=== PATIENT | male | born 1960 | race Caucasian/White ===

== ENCOUNTER 2017-02-12 06:04 | Emergency (ER) | payer SELFPAY ==
[~2017-02-12] VITALS: Ht 177.8 cm; Wt 73.0 kg
[~2017-02-12 06:04] MED LIST: 1-ME1LIQ PO; EPIP0.3I IM; NICO14DI TD; PANT20 PO; PRED10 PO
[2017-02-12 06:07] VITALS: BP 175/120; PULSE 118; RESP 16; TEMP 98.8; O2SAT 97
[2017-02-12] MEDS ORDERED: AMLO10TA2 PO (06:11)
--- NOTE | 2017-02-12 06:41 | PD ---
HPI Chief Complaint: Alcohol/Drug Intoxication Time Seen by Provider: 06:39 Travel History International Travel<30 days: No Contact w/Intl Traveler<30days: No Traveled to known affect area: No History of Present Illness HPI 56-year-old male arrives requesting a call detox. It has been 5-6 drinks daily. He last drank yesterday. He has been drinking for about 10 years or so. He was unaware that we do not have a detox program here but is agreeable with the plan to go to [facility]. He has no thought of hurting himself or others. He denies drug abuse. He lives with his and his private house. PFSH Past Medical History Asthma: No Blood Disorders: No Anxiety: No Depression: Yes Heart Rhythm Problems: No Cancer: No Cardiovascular Problems: No High Cholesterol: No Chemotherapy: No Chest Pain: No Congestive Heart Failure: No COPD: No Diabetes: No Patient Takes Glucophage: No Diminished Hearing: No Endocrine: No Hypertension: Yes Immune Disorder: No Musculoskeletal: No Neurologic: No Psychiatric: No Reproductive: No Respiratory: No Immunizations Current: Yes Pancreatitis: Yes Radiation Therapy: No Sleep Apnea: No Thyroid Disease: No Tetanus Vaccination: < 5 Years Influenza Vaccination: Yes Past Surgical History Abdominal Surgery: Yes (hernia repair) Tonsillectomy: Yes Other Surgery: Yes (hernia repair) Social History Alcohol Use: Yes (6 PACK BEER/DAY) Tobacco Use: Yes (1 PPD) Substance Use: No Allergies-Medications (Allergen,Severity, Reaction): Coded Allergies: Iodine (Verified Allergy, Severe, SWELLING, 02/12/17) Lisinopril (Verified Allergy, Severe, 02/12/17) Severe angioedema. Reported Meds & Prescriptions Reported Meds & Active Scripts Active Valium (Diazepam) 10 Mg Tab 10 Mg PO BID PRN Reported Amlodipine (Amlodipine Besylate) 10 Mg Tab 10 Mg PO DAILY Review of Systems Except as stated in HPI: all other systems reviewed are Neg Physical Exam Narrative GENERAL: 56-year-old male pleasant well-nourished well-developed SKIN: Focused skin assessment warm/dry. HEAD: Atraumatic. Normocephalic. EYES: Pupils equal and round. No scleral icterus. No injection or drainage. ENT: No nasal bleeding or discharge. Mucous membranes pink and moist. NECK: Trachea midline. No JVD. CARDIOVASCULAR: Regular rate and rhythm. No murmur appreciated. RESPIRATORY: No accessory muscle use. Clear to auscultation. Breath sounds equal bilaterally. GASTROINTESTINAL: Abdomen soft, non-tender, nondistended. Hepatic and splenic margins not palpable. MUSCULOSKELETAL: No obvious deformities. No clubbing. No cyanosis. No edema. NEUROLOGICAL: Awake and alert. No obvious cranial nerve deficits. Motor grossly within normal limits. Normal speech. PSYCHIATRIC: Appropriate mood and affect; insight and judgment normal. Data Data Last Documented VS Vital Signs Date Time Temp Pulse Resp B/P Pulse Ox O2 Delivery O2 Flow Rate FiO2 02/12/17 06:07 98.8 118 16 175/120 97 Room Air Time of my assessment: 6:30 AM pulse about 90-100 Orders Lorazepam (Ativan) (02/12/17 06:45) [facility] Medical Decision Making Medical Screen Exam Complete: Yes Emergency Medical Condition: Yes Differential Diagnosis Alcoholism, alcohol withdrawal, tremor Narrative Course Patient arrives and requests admission for alcohol detox. After long discussion he decided to go home for an approach to alcohol detox. He was with his and is quite motivated to quit. He drinks about 5 drinks a day and has been doing so for about 15 years. Time of my evaluation which was about 6: 30 AM his pulse was 100. A very fine tremor was noted about the hands however I could see no indication for admission for alcohol withdrawal syndrome. Diagnosis Primary Impression: Alcoholism Referrals: [facility] Additional Instructions: Please do not drink alcohol if you take Valium. Med/Other Pt SpecificInfo: No Change to Meds Scripts Diazepam (Valium)10 Mg Tab10 Mg PO BID PRN (WITHDRAWAL) #20 TAB Ref 0 Prov:Zohaib Weston MD 02/12/17 Disposition: 01 DISCHARGE HOME Condition: Stable Zohaib Weston MD Feb 12, 2017 06:41
[2017-02-12] MEDS ORDERED: LORazepam 1 MG TAB PO ONE (06:45)
[2017-02-12] MEDS ORDERED: DIAZ10 PO (07:00)
== END 2017-02-12 07:08 | disposition home or self-care (01) ==
LOC: NEPE 06:04
DX: F10.20 Alcohol dependence, uncomplicated (principal); I10 Essential (primary) hypertension; F17.210 Nicotine dependence, cigarettes, uncomplicated
CPT/HCPCS: 99283

== ENCOUNTER 2017-06-08 10:16 | Emergency (ER) | payer SELFPAY ==
[~2017-06-08] VITALS: Ht 175.3 cm; Wt 72.0 kg
[~2017-06-08 10:16] MED LIST changes: -1-ME1LIQ PO; +AMLO10TA2 PO; +DIAZ10 PO; -EPIP0.3I IM; -NICO14DI TD; -PANT20 PO; -PRED10 PO
[2017-06-08 10:19] VITALS: BP 138/99; PULSE 128; RESP 16; TEMP 99.5; O2SAT 98
--- NOTE | 2017-06-08 11:36 | PD ---
HPI Chief Complaint: Skin Problem Time Seen by Provider: 11:28 Travel History International Travel<30 days: No Contact w/Intl Traveler<30days: No Traveled to known affect area: No History of Present Illness HPI 56-year-old male with a month 1 month history of possible scabies. 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 He used half of a tube of his 's permethrin cream without relief. States that this started on his legs that has moved into his groin and upper extremities. States that this is intensely pruritic and has been sleeping in different beds and his because of the symptoms. Denies fever, chills, chest pain, numbness, tingling. Denies sexual contact with her or anyone else. Denies penile discharge or urinary complaints. PFSH Past Medical History Asthma: No Blood Disorders: No Anxiety: No Depression: Yes Heart Rhythm Problems: No Cancer: No Cardiovascular Problems: No High Cholesterol: No Chemotherapy: No Chest Pain: No Congestive Heart Failure: No COPD: No Diabetes: No Diminished Hearing: No Endocrine: No Gastrointestinal Disorders: No Hypertension: Yes Immune Disorder: No Implanted Vascular Access Dvce: No Musculoskeletal: No Neurologic: No Psychiatric: No Reproductive: No Respiratory: No Immunizations Current: Yes Pancreatitis: Yes Radiation Therapy: No Sleep Apnea: No Thyroid Disease: No Past Surgical History Abdominal Surgery: Yes (hernia repair) Tonsillectomy: Yes Other Surgery: Yes (hernia repair) Social History Alcohol Use: Yes (6 PACK BEER/DAY) Tobacco Use: Yes (1 PPD) Substance Use: No Allergies-Medications (Allergen,Severity, Reaction): Coded Allergies: iodine (Unverified Allergy, Severe, SWELLING, 06/08/17) lisinopril (Unverified Allergy, Severe, 06/08/17) Severe angioedema. potassium iodide (Unverified Allergy, Severe, SWELLING, 06/08/17) povidone-iodine (Unverified Allergy, Severe, SWELLING, 06/08/17) sodium iodide (Unverified Allergy, Severe, SWELLING, 06/08/17) sodium iodide (Unverified Allergy, Severe, SWELLING, 06/08/17) Reported Meds & Prescriptions Reported Meds & Active Scripts Active Permethrin Topical 5% (Permethrin) 5% Cream 1 Applic TOPICAL ONCE Apply head to toe. Leave on overnight for 10-12 hours. Repeat in 5 days. Valium (Diazepam) 10 Mg Tab 10 Mg PO BID PRN Reported Amlodipine (Amlodipine Besylate) 10 Mg Tab 10 Mg PO DAILY Review of Systems Except as stated in HPI: all other systems reviewed are Neg Physical Exam Narrative GENERAL: WD, WN in no apparent distress. SKIN: Focused skin assessment warm/dry. Papules without fluid scattered, occasional in clusters on upper legs.scattered upper extremities without evidence of excoriations. No erythema, lymphangiopathic spread. 1 area of left 4th interdigital space with burrowing HEAD: Atraumatic. Normocephalic. EYES: Pupils equal and round. No scleral icterus. No injection or drainage. ENT: No nasal bleeding or discharge. Mucous membranes pink and moist. NECK: Trachea midline. No JVD. No meningismus GASTROINTESTINAL: Abdomen soft, non-tender, nondistended. Hepatic and splenic margins not palpable. MUSCULOSKELETAL: No obvious deformities. No clubbing. No cyanosis. No edema. NEUROLOGICAL: Awake and alert. No obvious cranial nerve deficits. Motor grossly within normal limits. Normal speech. PSYCHIATRIC: Appropriate mood and affect; insight and judgment normal. Data Data Last Documented VS Vital Signs Date Time Temp Pulse Resp B/P (MAP) Pulse Ox O2 Delivery O2 Flow Rate FiO2 06/08/17 11:55 06/08/17 10:19 99.5 128 16 98 Orders Orders Ed Discharge Order (06/08/17 11:37) [facility] Medical Decision Making Medical Screen Exam Complete: Yes Emergency Medical Condition: Yes Differential Diagnosis Scabies versus contact dermatitis versus allergic dermatitis Narrative Course 56-year-old male with a month 1 month history of possible scabies. 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 He used half of a tube of his 's permethrin cream without relief. States that this started on his legs that has moved into his groin and upper extremities. States that this is intensely pruritic and has been sleeping in different beds and his because of the symptoms. Denies fever, chills, chest pain, numbness, tingling. Denies sexual contact with her or anyone else. Denies penile discharge or urinary complaints. Vital Signs stable. Physical Exam consistent with scabies without evidence of cellulitis, impetigo, or other skin infections. Pt to use permethrin cream as directed. Consider follow up with dermatology. Pt to return for worsening symptoms. Diagnosis Primary Impression: Scabies Referrals: [facility] Additional Instructions: Take medication as prescribed If her symptoms persist or worsen return to the emergency department Wash clothing bedding and furniture thoroughly with bleach hot water. Avoid contact with others until completely cleared. Scripts Permethrin Topical 5% (Permethrin Topical 5%) 5% Cream 1 APPLIC TOPICAL ONCE for Scabies, #1 TUBE 0 Refills Apply head to toe. Leave on overnight for 10-12 hours. Repeat in 5 days. Prov: Jose Fontana MD 06/08/17 Disposition: 01 DISCHARGE HOME Condition: Stable Karina Davalos Jun 08, 2017 11:36
[2017-06-08] MEDS ORDERED: PERM5CRE TOPICAL (11:37)
== END 2017-06-08 11:58 | disposition home or self-care (01) ==
LOC: NEPK 10:16
DX: B86 Scabies (principal); I10 Essential (primary) hypertension; F32.9 Major depressive disorder, single episode, unspecified
CPT/HCPCS: 99283

== ENCOUNTER 2017-07-09 07:52 | Emergency (ER) | payer SELFPAY ==
[~2017-07-09 07:52] MED LIST changes: +PERM5CRE TOPICAL
[2017-07-09 07:53] VITALS: BP 156/103; PULSE 115; RESP 18; TEMP 98.3; O2SAT 99
[2017-07-09] MEDS ORDERED: SODIUM CHLOR 0.9% 1000 ML INJ 1,000 ML IV ONE (08:15)
[2017-07-09 08:51] LABS: AUTOMATED NEUTROPHIL # 2.3 TH/MM3 (1.8-7.7); BASOPHIL % 1.1 % (0.0-2.0); EOSINOPHIL # 0.1 TH/MM3 (0-0.4); EOSINOPHIL % 3.7 % (0.0-4.0); HEMATOCRIT 45.7 % (39.0-51.0); HEMOGLOBIN 16.5 GM/DL (13.0-17.0); LYMPH % 15.8 % (9.0-44.0); LYMPHOCYTE # 0.6 TH/MM3 (1.0-4.8); MEAN CELL VOLUME 100.9 FL (80.0-100.0); MEAN CORPUSCULAR HEMOGLOBIN 36.4 PG (27.0-34.0); MEAN PLATELET VOLUME 8.5 FL (7.0-11.0); MONO % 15.5 % (0.0-8.0); MONOCYTE # 0.6 TH/MM3 (0-0.9); NEUT % 63.9 % (16.0-70.0); PLATELET COUNT 120 TH/MM3 (150-450); RED BLOOD COUNT 4.53 MIL/MM3 (4.50-5.90); RED CELL DISTRIBUTION WIDTH 17.2 % (11.6-17.2); WHITE BLOOD COUNT 3.6 TH/MM3 (4.0-11.0)
--- NOTE | 2017-07-09 09:04 | PD ---
HPI Chief Complaint: Skin Problem Time Seen by Provider: 08:10 Travel History International Travel<30 days: No Contact w/Intl Traveler<30days: No Traveled to known affect area: No History of Present Illness HPI Patient is a 56 year old male who comes in complaining of a rash to his skin. He was diagnosed with scabies about a month ago. He used the Permethrin cream and says it resolved. This started shortly afterwards. The lesions are on the upper legs and in the groin. He also reports a few lesions on his penis with burning on urination. He is a chronic alcoholic and says he drank a lot last night. He denies fevers or chills. The rash is itchy and painful. He tried cortisone cream without relief. PFSH Past Medical History Asthma: No Blood Disorders: No Anxiety: No Depression: Yes Heart Rhythm Problems: No Cancer: No Cardiovascular Problems: No High Cholesterol: No Chemotherapy: No Chest Pain: No Congestive Heart Failure: No COPD: No Diabetes: No Diminished Hearing: No Endocrine: No Gastrointestinal Disorders: No Hypertension: Yes Immune Disorder: No Implanted Vascular Access Dvce: No Musculoskeletal: No Neurologic: No Psychiatric: No Reproductive: No Respiratory: No Immunizations Current: Yes Pancreatitis: Yes Radiation Therapy: No Sleep Apnea: No Thyroid Disease: No Tetanus Vaccination: > 5 Years Influenza Vaccination: No Past Surgical History Abdominal Surgery: Yes (hernia repair) Tonsillectomy: Yes Other Surgery: Yes (hernia repair) Social History Alcohol Use: Yes (6 PACK BEER/DAY) Tobacco Use: Yes (1 PPD) Substance Use: No Allergies-Medications (Allergen,Severity, Reaction): Coded Allergies: iodine (Unverified Allergy, Severe, SWELLING, 07/09/17) lisinopril (Unverified Allergy, Severe, 07/09/17) Severe angioedema. potassium iodide (Unverified Allergy, Severe, SWELLING, 07/09/17) povidone-iodine (Unverified Allergy, Severe, SWELLING, 07/09/17) sodium iodide (Unverified Allergy, Severe, SWELLING, 07/09/17) sodium iodide (Unverified Allergy, Severe, SWELLING, 07/09/17) Reported Meds & Prescriptions Reported Meds & Active Scripts Active Triamcinolone Topical (Triamcinolone Acetonide) 0.1 % Oint 1 Applic TOPICAL BID 7 Days Prednisone 50 Mg Tab 50 Mg PO DAILY 5 Days Reported Amlodipine (Amlodipine Besylate) 10 Mg Tab 10 Mg PO DAILY Review of Systems Except as stated in HPI: all other systems reviewed are Neg General / Constitutional: No: Fever, Chills HENT: No: Headaches, Lightheadedness Cardiovascular: No: Chest Pain or Discomfort Respiratory: No: Shortness of Breath Gastrointestinal: No: Nausea, Vomiting Genitourinary: Positive: Dysuria, No: Discharge Skin: Positive Rash, Positive Itching, Positive Lesions Neurologic: No: Weakness, Dizziness Physical Exam Narrative GENERAL: Awake and alert, in no acute distress. SKIN: Focused skin assessment warm/dry. Several red, flat lesions to the upper thighs, that coalesce. No skin sloughing. Some lesions have scaly borders. HEAD: Atraumatic. Normocephalic. EYES: Pupils equal and round. No scleral icterus. ENT: Dry mucus membranes. No lesions in the mouth or on the lips. NECK: Trachea midline. No JVD. CARDIOVASCULAR: Regular rate and rhythm. No murmur appreciated. RESPIRATORY: No accessory muscle use. Clear to auscultation. Breath sounds equal bilaterally. : red lesions on the glans and shaft. No ulcerations, no discharge. MUSCULOSKELETAL: No obvious deformities. No clubbing. No cyanosis. No edema. NEUROLOGICAL: Awake and alert. No obvious cranial nerve deficits. Motor grossly within normal limits. Normal speech. PSYCHIATRIC: Appropriate mood and affect; insight and judgment normal. Data Data Last Documented VS Vital Signs Date Time Temp Pulse Resp B/P (MAP) Pulse Ox O2 Delivery O2 Flow Rate FiO2 07/09/17 10:35 07/09/17 09:32 77 18 99 Room Air 07/09/17 07:53 98.3 Orders Orders Iv Access Insert/Monitor (07/09/17 08:11) Complete Blood Count With Diff (07/09/17 08:11) Comprehensive Metabolic Panel (07/09/17 08:11) Gc And Chlamydia Pcr (07/09/17 08:11) Urinalysis - C+S If Indicated (07/09/17 08:11) Rapid Plasmin Reagin Screen (07/09/17 08:11) Sodium Chlor 0.9% 1000 Ml Inj (Ns 1000 M (07/09/17 08:15) Ed Discharge Order (07/09/17 10:24) Labs Laboratory Tests Test 07/09/17 08:35 White Blood Count 3.6 TH/MM3 Red Blood Count 4.53 MIL/MM3 Hemoglobin 16.5 GM/DL Hematocrit 45.7 % Mean Corpuscular Volume 100.9 FL Mean Corpuscular Hemoglobin 36.4 PG Mean Corpuscular Hemoglobin Concent 36.0 % Red Cell Distribution Width 17.2 % Platelet Count 120 TH/MM3 Mean Platelet Volume 8.5 FL Neutrophils (%) (Auto) 63.9 % Lymphocytes (%) (Auto) 15.8 % Monocytes (%) (Auto) 15.5 % Eosinophils (%) (Auto) 3.7 % Basophils (%) (Auto) 1.1 % Neutrophils # (Auto) 2.3 TH/MM3 Lymphocytes # (Auto) 0.6 TH/MM3 Monocytes # (Auto) 0.6 TH/MM3 Eosinophils # (Auto) 0.1 TH/MM3 Basophils # (Auto) 0.0 TH/MM3 CBC Comment AUTO DIFF Differential Comment AUTO DIFF CONFIRMED Platelet Estimate LOW Platelet Morphology Comment ENLARGED Urine Color YELLOW Urine Turbidity CLEAR Urine pH 7.0 Urine Specific Richards 1.014 Urine Protein 30 mg/dL Urine Glucose (UA) NEG mg/dL Urine Ketones 40 mg/dL Urine Occult Blood NEG Urine Nitrite NEG Urine Bilirubin NEG Urine Urobilinogen 2.0 MG/DL Urine Leukocyte Esterase NEG Urine RBC 2 /hpf Urine WBC 1 /hpf Urine Squamous Epithelial Cells <1 /hpf Urine Hyaline Casts 1 /lpf Urine Granular Casts 3 /lpf Urine Mucus FEW /lpf Microscopic Urinalysis Comment CULT NOT INDICATED Blood Urea Nitrogen 6 MG/DL Creatinine 0.84 MG/DL Random Glucose 116 MG/DL Total Protein 8.8 GM/DL Albumin 4.6 GM/DL Calcium Level 9.5 MG/DL Alkaline Phosphatase 81 U/L Aspartate Amino Transf (AST/SGOT) 136 U/L Alanine Aminotransferase (ALT/SGPT) 134 U/L Total Bilirubin 0.7 MG/DL Sodium Level 134 MEQ/L Potassium Level 3.6 MEQ/L Chloride Level 99 MEQ/L Carbon Dioxide Level 24.5 MEQ/L Anion Gap 11 MEQ/L Estimat Glomerular Filtration Rate 95 ML/MIN Rapid Plasma Reagin NON-REACTIVE Chlamydia trachomatis DNA (PCR) NOT DETECTED Neisseria gonorrhoeae DNA (PCR) NOT DETECTED [facility] Medical Decision Making Medical Screen Exam Complete: Yes Emergency Medical Condition: Yes Medical Record Reviewed: Yes Differential Diagnosis pemphigus vs fungal infection vs gc/chlamydia vs autoimmune reaction Narrative Course Patient is a 56-year-old male comes in complaining of rash to his legs. Exam shows flat red lesions to the upper thighs with an appearance of pemphigus. There are no signs of infection. IV established, labs sent. Labs show evidence of alcoholic liver disease. Patient informed of these results. Advised to get help for detox. Patient be discharged with prescription for triamcinolone cream as well as a short course of prednisone. He is advised follow-up with dermatology in his primary doctor. Advised to return to the ED as needed for any worsening symptoms. Diagnosis Primary Impression: Rash Additional Impression: Alcoholic liver damage Patient Instructions: Acute Rash (ED), General Instructions Additional Instructions: Take all of the steroids. Apply the cream to her skin as directed. Follow-up with dermatology. Return to the ED as needed for any worsening symptoms. Scripts Triamcinolone Topical (Triamcinolone Topical) 0.1 % Oint 1 APPLIC TOPICAL BID for Inflammation for 7 Days, GM 0 Refills Prov: Cynthia Gaines MD 07/09/17 Prednisone (Prednisone) 50 Mg Tab 50 MG PO DAILY for 5 Days, #5 TAB 0 Refills Prov: Cynthia Gaines MD 07/09/17 Disposition: 01 DISCHARGE HOME Condition: Stable Cynthia Gaines MD Jul 09, 2017 09:04
[2017-07-09 09:06] LABS: ALBUMIN 4.6 GM/DL (3.4-5.0); BICARBONATE 24.5 MEQ/L (21.0-32.0); BLOOD UREA NITROGEN 6 MG/DL (7-18); CALCIUM 9.5 MG/DL (8.5-10.1); CHLORIDE 99 MEQ/L (98-107); CREATININE 0.84 MG/DL (0.60-1.30); GLOMERULAR FILTRATION RATE 95 ML/MIN (>89); GLUCOSE,RANDOM 116 MG/DL (74-106); SODIUM (NA) 134 MEQ/L (136-145)
[2017-07-09 09:08] LABS: ALT (GPT) 134 U/L (12-78); AST (GOT) 136 U/L (15-37)
[2017-07-09 09:10] LABS: ALKALINE PHOSPHATASE 81 U/L (45-117); TOTAL BILIRUBIN ADULT 0.7 MG/DL (0.2-1.0); TOTAL PROTEIN 8.8 GM/DL (6.4-8.2)
[2017-07-09 09:13] LABS: BILIRUBIN, URINE NEG (NEG); BLOOD, URINE NEG (NEG); GLUCOSE,URINE NEG (NEG); HYALINE CAST, URINE 1 /lpf (RARE); KETONE, URINE 40 mg/dL (NEG); MUCUS URINE FEW /lpf (OCC); NITRITE,URINE NEG (NEG); SQUAMOUS EPITHELIAL CELL URINE <1 /hpf (0-5); URINE COLOR YELLOW (YELLW/STRAW); URINE LEUKOCYTE ESTERASE NEG (NEG)
[2017-07-09 09:32] VITALS: BP 140/88; PULSE 77; RESP 18; O2SAT 99
[2017-07-09] MEDS ORDERED: PRED50 PO (10:23)
[2017-07-09] MEDS ORDERED: TRIAM.1%T TOPICAL (10:23)
== END 2017-07-09 10:40 | disposition home or self-care (01) ==
LOC: NEPE 07:52
DX: R21 Rash and other nonspecific skin eruption (principal); K70.9 Alcoholic liver disease, unspecified; F10.20 Alcohol dependence, uncomplicated; F32.9 Major depressive disorder, single episode, unspecified; I10 Essential (primary) hypertension; R30.0 Dysuria; F17.200 Nicotine dependence, unspecified, uncomplicated; Z87.2 Personal history of diseases of the skin and subcutaneous tissue
CPT/HCPCS: 80053; 81001; 85025; 86592; 87491; 87591; 99284; J7030